=== PATIENT | male | born 1960 | race African-American/Black ===

== ENCOUNTER 2023-07-08 14:23 | Inpatient (IN) | payer OTHER ==
[2023-07-08 14:55] VITALS: BMI 18.3
[2023-07-08] MEDS ORDERED: NALOXONE HCL 0.4 MG/ML VIAL IM PRN (18:06)
[2023-07-08] MEDS ORDERED: LOPERAMIDE HCL 2 MG CAPSULE PO PRN (18:06)
[2023-07-08] MEDS ORDERED: NALOXONE HCL (KLOXXADO) 8 MG SPRAY NS PRN (18:06)
[2023-07-08] MEDS ORDERED: MAGNESIUM HYDROX 2400MG/30ML ORAL SUSPENSION 30 ML CUP PO PRN (18:06)
[2023-07-08] MEDS ORDERED: POLYETHYLENE GLYCOL (HEALTHYLAX) 3350 17 GM PACKET PO PRN (18:06)
[2023-07-08] MEDS ORDERED: guaiFENesin 600 MG TABLET.ER (FP) PO PRN (18:06)
[2023-07-08] MEDS ORDERED: NICOTINE POLACRILEX 2 MG GUM BUC PRN (18:06)
[2023-07-08] MEDS ORDERED: MAG HYDROX/AL HYDROX/SIMETH 30 ML UNIT-DOSE CUP PO PRN (18:06)
[2023-07-08] MEDS ORDERED: BENZONATATE 200 MG CAPSULE PO PRN (18:06)
[2023-07-09] MEDS: MELATONIN 5 MG TABLETS PO SCH (01:05)
[2023-07-09] MEDS: THIAMINE HCL 100 MG TABLET (FP) PO SCH (01:06)
[2023-07-09] MEDS: metFORMIN HCL 500 MG TABLET (FP) PO SCH (06:43)
[2023-07-09] MEDS: IBUPROFEN 600 MG TABLET (FP) PO PRN (06:43)
[2023-07-09] MEDS: ALBUTEROL SO4 HFA INHALER IH PRN (06:51)
[2023-07-09] MEDS: INSULIN ASPART SLIDING SCALE (NOVOLOG) 1 VIAL SQ SCH (06:51)
[2023-07-09] MEDS: PRENATAL VITAMINS W/ FOLIC ACID TABLET (FP) PO SCH (10:09)
[2023-07-09] MEDS: IBUPROFEN 400 MG TABLET (FP) PO PRN (10:09)
[2023-07-09] MEDS: NICOTINE 21 MG/24 HOURS TOPICAL PATCH TD SCH (10:17)
[2023-07-09] MEDS: ATORVASTATIN CA 20 MG TABLET (FP) PO SCH (21:25)
[2023-07-09] MEDS: QUEtiapine FUMARATE 100 MG TABLET (FP) PO SCH (21:25)
[2023-07-10] MEDS: ACETAMINOPHEN 325 MG TABLET (FP) PO PRN (12:19)
[2023-07-10 18:23] LABS: PH,URINE 7.5 (5.0-8.0); URINE APPEARANCE CLEAR; URINE BILIRUBIN NEGATIVE (NEGATIVE); URINE COLOR YELLOW; URINE GLUCOSE (UA) NEGATIVE (NEGATIVE); URINE KETONE NEGATIVE (NEGATIVE); URINE LEUK ESTERASE NEGATIVE (NEGATIVE); URINE NITRITE NEGATIVE (NEGATIVE); URINE PROTEIN NEGATIVE (NEGATIVE); URINE UROBILINOGEN 0.2 mg/dL (0.2-1.0)
[2023-07-11] MEDS ORDERED: DOCUSATE SODIUM 100 MG CAPSULE (FP) PO PRN (08:24)
[2023-07-11] MEDS: amLODIPine BESYLATE 5 MG TABLET (FP) PO SCH (14:36)
[2023-07-11] MEDS: TIOTROPIUM BROMIDE 2.5 MCG (SPIRIVA) RESPIMAT INHALER IH SCH (14:36)
[2023-07-11] MEDS: PHENYTOIN NA EXTENDED 100 MG CAPSULE (FP) PO SCH (15:00)
[2023-07-11] MEDS: ASPIRIN COATED 81 MG TABLET.EC PO SCH (15:03)
[2023-07-11] MEDS: GABAPENTIN 300 MG CAPSULE PO SCH (15:04)
[2023-07-11] MEDS: PANTOPRAZOLE 20 MG TABLET PO SCH (15:04)
[2023-07-11] MEDS ORDERED: INSULIN (NOVOLOG) ASPART 100 UNITS/ML 10ML VIAL ONE (16:44)
[2023-07-11] MEDS: NAPROXEN 500 MG TABLET PO PRN (16:53)
[2023-07-11] MEDS: ATORVASTATIN CA 40 MG TABLET (FP) PO SCH (21:47)
[2023-07-11] MEDS: BUDESONIDE/FORMETEROL FUMARATE 80/4.5 mcg INHALER IH SCH (21:48)
[2023-07-11] MEDS: INSULIN (LEVEMIR) 100 UNITS/ML UNITS SQ SCH (21:59)
[2023-07-12] MEDS: HYDROCHLOROTHIAZIDE 12.5 MG CAPSULE (FP) PO SCH (09:54)
[2023-07-13] MEDS ORDERED: BISACODYL 5 MG TABLET.DR (FP) PO PRN (08:48)
[2023-07-13] MEDS ORDERED: INSULIN (NOVOLOG) ASPART 100 UNITS/ML 10ML VIAL ONE ×2 (16:59→21:52)
[2023-07-14] MEDS ORDERED: INSULIN (NOVOLOG) ASPART 100 UNITS/ML 10ML VIAL ONE (08:11)
[2023-07-14] MEDS: LIDOCAINE 5% TOPICAL PATCH TP SCH (11:53)
[2023-07-14] MEDS: LIDOCAINE PATCH REMOVAL MC SCH (21:03)
[2023-07-15] MEDS: BENZOCAINE/MENTHOL (CHLORASEPTIC ) LOZENGE MM PRN (06:38)
[2023-07-17 08:52] VITALS: RESP 17; TEMP 96.5
[2023-07-17 09:10] VITALS: BP 121/79; PULSE 98
== END 2023-07-17 14:07 | disposition home or self-care (01) | DRG 772 ==
LOC: YASAS 14:23 → Y3E 07-09 01:40
PROVIDERS: ADMIT Allergy & Immunology; ATTEND Psychiatry & Neurology Pain Medicine
PROC: HZ42ZZZ Group Counseling for Substance Abuse Treatment, Cognitive-Behavioral (ICD-10-PCS; principal; 2023-07-09)
DX: F14.20 Cocaine dependence, uncomplicated (principal); F17.210 Nicotine dependence, cigarettes, uncomplicated; F20.0 Paranoid schizophrenia; F31.9 Bipolar disorder, unspecified; F19.282 Other psychoactive substance dependence with psychoactive substance-induced sleep disorder; F19.24 Other psychoactive substance dependence with psychoactive substance-induced mood disorder; F10.24 Alcohol dependence with alcohol-induced mood disorder; G62.9 Polyneuropathy, unspecified; I10 Essential (primary) hypertension; J43.2 Centrilobular emphysema; J45.20 Mild intermittent asthma, uncomplicated; G40.909 Epilepsy, unspecified, not intractable, without status epilepticus; E11.42 Type 2 diabetes mellitus with diabetic polyneuropathy; Z79.84 Long term (current) use of oral hypoglycemic drugs; K21.9 Gastro-esophageal reflux disease without esophagitis; K40.90 Unilateral inguinal hernia, without obstruction or gangrene, not specified as recurrent; Z86.11 Personal history of tuberculosis; R94.31 Abnormal electrocardiogram [ECG] [EKG]; Z99.89 Dependence on other enabling machines and devices
CPT/HCPCS: 36415; 71045-TC-FY; 80053; 80305; 80307; 81003; 82962; 84484; 85025; 85610; 85730; 86593; 86780; 87635; 99283-25

== ENCOUNTER 2023-07-12 14:27 | Emergency (ER) | payer OTHER ==
[2023-07-12 14:59] VITALS: RESP 18; BMI 27.1
[2023-07-12 15:48] LABS: VENOUS BASE EXCESS 3.8 mmol/L (-2-2); VENOUS O2 SATURATION 63.1 % (70-80); VENOUS PCO2 53.9 mmHg (38-52); VENOUS PH 7.371 (7.310-7.410)
[2023-07-12 15:51] LABS: BASO % 0.5 % (0-2.0); EOS % 6.5 % (0-4.5); HEMATOCRIT 41.3 % (35.4-49); HEMOGLOBIN 14.1 GM/dL (11.7-16.9); LYMPH % 22.2 % (8-40); MCH 30.4 pg (25.7-33.7); MCHC 34.3 g/dl (32.0-35.9); MEAN CELL VOLUME 88.6 fl (80-96); MONO % 9.9 % (3.8-10.2); NEUT % 60.9 % (42.8-82.8); PLATELET COUNT 183 10^3/uL (134-434); RBC 4.66 M/mm3 (4.00-5.60); RDW 13.8 % (11.9-15.9)
[2023-07-12 15:58] LABS: INR 0.89 (0.83-1.09); PROTHROMBIN TIME (PATIENT) 10.3 SEC (9.7-13.0)
[2023-07-12] MEDS ORDERED: IOHEXOL (OMNIPAQUE PO) 12 MG/ML - 500 ML BOTTLE PO ONE (16:00)
[2023-07-12 16:01] LABS: ACTIVATED PTT 29.1 SECONDS (25.2-36.5)
[2023-07-12 16:02] LABS: PH,URINE 7.5 (5.0-8.0); URINE APPEARANCE CLEAR; URINE BILIRUBIN NEGATIVE (NEGATIVE); URINE COLOR YELLOW; URINE GLUCOSE (UA) NEGATIVE (NEGATIVE); URINE KETONE NEGATIVE (NEGATIVE); URINE LEUK ESTERASE NEGATIVE (NEGATIVE); URINE NITRITE NEGATIVE (NEGATIVE); URINE PROTEIN NEGATIVE (NEGATIVE); URINE UROBILINOGEN 0.2 mg/dL (0.2-1.0)
[2023-07-12 16:13] LABS: POTASSIUM 4.2 mmol/L (3.5-5.1)
[2023-07-12 16:15] LABS: BLOOD UREA NITROGEN 22.4 mg/dL (7-18); CALCIUM 8.9 mg/dL (8.5-10.1)
[2023-07-12 16:18] LABS: CREATININE 0.8 mg/dL (0.55-1.3)
[2023-07-12 16:20] LABS: BILIRUBIN,TOTAL 0.3 mg/dL (0.2-1); TOT PROT 5.8 g/dl (6.4-8.2)
[2023-07-12 21:00] VITALS: BP 122/79; PULSE 81; TEMP 97.9
== END 2023-07-12 21:17 | disposition home or self-care (01) ==
LOC: JER 14:27
DX: R10.32 Left lower quadrant pain (principal)
CPT/HCPCS: 36415; 74177-TC; 80053; 81003; 82803; 83605; 85025; 85610; 85730; 86850; 86900; 86901; 87086; 93005; 93010; 99285-25

== ENCOUNTER 2024-04-06 16:33 | Inpatient (IN) | payer OTHER ==
[2024-04-06 17:23] VITALS: BMI 18.1
[2024-04-06] MEDS ORDERED: BENZOCAINE/MENTHOL (CHLORASEPTIC ) LOZENGE MM PRN (20:28)
[2024-04-06] MEDS ORDERED: MAGNESIUM HYDROX 2400MG/30ML ORAL SUSPENSION 30 ML CUP PO PRN (20:28)
[2024-04-06] MEDS ORDERED: BENZONATATE 200 MG CAPSULE PO PRN (20:28)
[2024-04-06] MEDS ORDERED: POLYETHYLENE GLYCOL (HEALTHYLAX) 3350 17 GM PACKET PO PRN (20:28)
[2024-04-06] MEDS ORDERED: guaiFENesin 600 MG TABLET.ER (FP) PO PRN (20:28)
[2024-04-06] MEDS ORDERED: IBUPROFEN 400 MG TABLET (FP) PO PRN (20:28)
[2024-04-06] MEDS ORDERED: NICOTINE POLACRILEX 2 MG GUM BUC PRN (20:28)
[2024-04-06] MEDS ORDERED: IBUPROFEN 600 MG TABLET (FP) PO PRN (20:28)
[2024-04-06] MEDS ORDERED: MAG HYDROX/AL HYDROX/SIMETH 30 ML UNIT-DOSE CUP PO PRN (20:28)
[2024-04-06] MEDS ORDERED: LOPERAMIDE HCL 2 MG CAPSULE PO PRN (20:28)
[2024-04-06] MEDS ORDERED: NALOXONE (NARCAN) HCL 4 MG/0.1 ML SPRAY NS PRN (20:28)
[2024-04-06] MEDS ORDERED: NICOTINE POLACRILEX 2 MG LOZENGE BC PRN (20:28)
[2024-04-06] MEDS ORDERED: P-EPHED 60MG/TRIPROLIDI 2.5MG TABLET PO PRN (20:28)
[2024-04-06] MEDS: DOCUSATE SODIUM 100 MG CAPSULE (FP) PO SCH (22:46)
[2024-04-06] MEDS: BUDESONIDE/FORMETEROL FUMARATE 80/4.5 mcg INHALER IH SCH (22:46)
[2024-04-06] MEDS: THIAMINE 100 MG TABLET PO SCH (22:46)
[2024-04-06] MEDS: ATORVASTATIN CA 20 MG TABLET (FP) PO SCH (22:46)
[2024-04-06] MEDS: MELATONIN 5 MG TABLETS PO SCH (22:47)
[2024-04-06] MEDS: INSULIN ASPART SLIDING SCALE (NOVOLOG) 1 VIAL SQ SCH (22:49)
[2024-04-06] MEDS: ALBUTEROL SO4 2.5/IPRATROPIUM 0.5 INH SOL 3 ML VIAL.NEB. NEB SCH (22:55)
[2024-04-07] MEDS: metFORMIN HCL 500 MG TABLET (FP) PO SCH (06:27)
[2024-04-07] MEDS: ACETAMINOPHEN 325 MG TABLET (FP) PO PRN (06:28)
[2024-04-07] MEDS ORDERED: TIOTROPIUM BROMIDE 2.5 MCG (SPIRIVA) RESPIMAT INHALER IH SCH (10:00)
[2024-04-07] MEDS: SILVER SULFADIAZINE 1% TOP CREAM 50 GM JAR TP SCH (10:52)
[2024-04-07] MEDS: amLODIPine BESYLATE 5 MG TABLET (FP) PO SCH (10:53)
[2024-04-07] MEDS: predniSONE 20 MG TABLET (UD) PO SCH (10:53)
[2024-04-07] MEDS: PRENATAL VITAMINS W/ FOLIC ACID TABLET (FP) PO SCH (10:53)
[2024-04-07 13:03] LABS: EPI CELLS 8 /uL (0-25.1); HYALINE CASTS 1 /uL (0-3.1); PH,URINE 5.5 (5.0-8.0); URINE APPEARANCE CLEAR; URINE BACTERIA 56 /uL (0-1359); URINE BILIRUBIN NEGATIVE (NEGATIVE); URINE COLOR YELLOW; URINE GLUCOSE (UA) NEGATIVE (NEGATIVE); URINE KETONE NEGATIVE (NEGATIVE); URINE LEUK ESTERASE TRACE (NEGATIVE); URINE NITRITE NEGATIVE (NEGATIVE); URINE PROTEIN NEGATIVE (NEGATIVE); URINE RBC 15 /uL (0-23.9); URINE UROBILINOGEN 0.2 mg/dL (0.2-1.0); URINE WBC 40 /uL (0-25.8)
[2024-04-07 13:25] LABS: URINE CRYSTALS CA OXALATE FEW /hpf
[2024-04-08 11:18] LABS: HEMATOCRIT 41.7 % (35.4-49); HEMOGLOBIN 13.5 GM/dL (11.7-16.9); MCH 29.3 pg (25.7-33.7); MCHC 32.4 g/dl (32.0-35.9); MEAN CELL VOLUME 90.4 fl (80-96); MEAN PLT VOLUME 8.4 fl (7.5-11.1); PLATELET COUNT 181 10^3/uL (134-434); RBC 4.61 M/mm3 (4.00-5.60); RDW 13.6 % (11.9-15.9); WHITE BLOOD COUNT 7.7 K/mm3 (4.0-10.0)
[2024-04-08 11:32] LABS: POTASSIUM 3.7 mmol/L (3.5-5.1)
[2024-04-08 11:39] LABS: ALBUMIN 2.9 g/dl (3.4-5.0); BLOOD UREA NITROGEN 30.4 mg/dL (7-18)
[2024-04-08 11:43] LABS: BILIRUBIN,TOTAL 0.2 mg/dL (0.2-1); TOT PROT 5.7 g/dl (6.4-8.2)
[2024-04-08] MEDS: ALBUTEROL SO4 0.083% IH SOL 2.5 MG/3 ML VIAL.NEB. NEB PRN (14:11)
[2024-04-08] MEDS: QUEtiapine FUMARATE 100 MG TABLET (FP) PO SCH (22:45)
[2024-04-09 13:29] VITALS: BP 122/89; PULSE 79; RESP 17; TEMP 97.8
[2024-04-09] MEDS: ASPIRIN 81 MG CHEWABLE TABLETS PO SCH (14:54)
[2024-04-09] MEDS: ALBUTEROL SO4 HFA INHALER IH PRN (14:55)
[2024-04-09] MEDS ORDERED: NALOXONE (NYS OPIOID OVERDOSE PROGRAM) 4 MG/0.1 ML SPRAY NS PRN (15:17)
[2024-04-09] MEDS: NALOXONE (NYS OPIOID OVERDOSE PROGRAM) 4 MG/0.1 ML SPRAY NS SCH (15:23)
== END 2024-04-09 15:35 | disposition left against medical advice (07) | DRG 770 ==
LOC: YASAS 16:33 → Y3NR 21:12 → Y5N 04-09 11:32
PROVIDERS: ADMIT Psychiatry & Neurology Pain Medicine; ATTEND Psychiatry & Neurology Pain Medicine
PROC: HZ42ZZZ Group Counseling for Substance Abuse Treatment, Cognitive-Behavioral (ICD-10-PCS; principal; 2024-04-06)
DX: F14.20 Cocaine dependence, uncomplicated (principal); F10.20 Alcohol dependence, uncomplicated; F17.210 Nicotine dependence, cigarettes, uncomplicated; F31.9 Bipolar disorder, unspecified; F20.0 Paranoid schizophrenia; F19.282 Other psychoactive substance dependence with psychoactive substance-induced sleep disorder; F19.24 Other psychoactive substance dependence with psychoactive substance-induced mood disorder; F10.24 Alcohol dependence with alcohol-induced mood disorder; G40.909 Epilepsy, unspecified, not intractable, without status epilepticus; G62.9 Polyneuropathy, unspecified; I10 Essential (primary) hypertension; J43.2 Centrilobular emphysema; J45.20 Mild intermittent asthma, uncomplicated; E78.5 Hyperlipidemia, unspecified; K21.9 Gastro-esophageal reflux disease without esophagitis; E11.9 Type 2 diabetes mellitus without complications; Z79.84 Long term (current) use of oral hypoglycemic drugs; R26.89 Other abnormalities of gait and mobility; Z99.3 Dependence on wheelchair
CPT/HCPCS: 36415; 80053; 80185; 80305; 80307; 81003; 82140; 82962; 85027; 86593; 86780; 87811; 93005; 93010; 94640